=== PATIENT | male | born 1935 | race Caucasian/White ===

== ENCOUNTER 2018-08-02 13:38 | Emergency (ER) | payer MEDICARE ==
[2018-08-02] MEDS ORDERED: Sodium Chloride 0.9% 1000 ML 1,000 ML IV STA (14:07)
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
[2018-08-02 14:25] LABS: BASOPHIL % 0.1 % (0.0-0.4); Basophil (Absolute #) 0.02 (0-0.4); Eosinophil % 0.5 % (0.00-5.0); Eosinophil (Absolute #) 0.07 (0-0.5); Granulocyte Absolute (ANC) 9.54 (1.4-6.9); Granulocytes % 70.2 % (36.0-66.0); Hematocrit 41.1 % (42-50); Hemoglobin 13.2 gm/dl (12.5-18.0); Lymphocyte (Absolute #) 2.62 (1.0-4.6); Lymphocytes % 19.3 % (24.0-44.0); Mean Cell Volume 96.7 fl (78-100); Mean Corpuscular Hemoglobin 31.1 pg (26-32); Mean Corpuscular Hgb Concent. 32.1 g/dl (32-36); Mean Platelet Volume 11.1 fl (6-9.5); Monocyte (Absolute #) 1.35 (0.0-1.3); Monocytes % 9.9 % (0.0-12.0); Platelet Count 232 K/mm3 (150-450); Red Blood Count 4.25 M/mm3 (4.1-5.6); Red Cell Distribution Width 14.1 % (11.5-14.0); White Blood Count 13.6 K/mm3 (4.0-10.5)
[2018-08-02 14:33] LABS: INR 2.87 (0.8-3.0); PROTIME 33.7 SECONDS (8.83-12.87)
[2018-08-02] MEDS ORDERED: Sodium Chloride 0.9% 1000 ML 1,000 ML ONE (14:34)
[2018-08-02 14:38] LABS: ALBUMIN 3.7 g/dL (3.5-5.0); BILIRUBIN,TOTAL 0.7 mg/dL (0.2-1.3); Calcium 9.4 mg/dL (8.4-10.2); Creatinine 1 1.37 mg/dL (0.66-1.25); Potassium 3.7 mmol/L (3.5-5.1); Total Protein 6.5 g/dL (6.3-8.2)
[2018-08-02 15:07] VITALS: BP 173/102; PULSE 99
[2018-08-02 15:13] VITALS: O2SAT 95
[2018-08-02 15:17] LABS: Appearance CLEAR (CLEAR); Bilirubin NEGATIVE (NEGATIVE); Blood NEGATIVE Ery/ul (0-5); Glucose 150 mg/dL (NEGATIVE); Ketones TRACE (NEGATIVE); Leukocyte Esterase NEGATIVE (NEGATIVE); Mucus SLIGHT /HPF (NEGATIVE); Nitrite NEGATIVE (NEGATIVE); Protein,Urine Dip NEGATIVE (Negative); Urobilinogen NEGATIVE mg/dL (0-1); WBC 0-2 /HPF (0-5)
== END 2018-08-02 15:47 | disposition short-term general hospital (02) ==
LOC: ED 13:38
DX: S29.9XXA Unspecified injury of thorax, initial encounter (principal)
CPT/HCPCS: 36000; 36415; 71045; 80053; 81001; 82550; 84484; 85025; 85379; 85610; 93005; 93041; 96360; 99285

== ENCOUNTER 2018-09-29 12:58 | Emergency (ER) | payer MEDICARE ==
[2018-09-29] MEDS ORDERED: EPINEPHRINE ABBOJECT 1 MG IV ONE (12:59)
[2018-09-29] MEDS ORDERED: Sodium Chloride 0.9% 1000 ML 1,000 ML IV ONE (12:59)
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
--- NOTE | 2018-09-29 21:22 | XRAY ---
Indication: Endotracheal tube placement following cardiac arrest. Limited portable chest obtained on backboard demonstrates endotracheal tube tip 1.5 cm above the skip. Left lung base not included in the [id number] and there are multiple overlying monitoring leads. Visualized lungs demonstrates hazy interstitial lobular opacities without consolidation/large effusion. Heart is not enlarged.
== END 2018-09-29 15:59 | disposition expired ==
LOC: ED 12:58
DX: W67.XXXA Accidental drowning and submersion while in swimming-pool, initial encounter (principal); Y93.89 Activity, other specified; Y92.095 Swimming-pool of other non-institutional residence as the place of occurrence of the external cause; I10 Essential (primary) hypertension; E11.9 Type 2 diabetes mellitus without complications; M19.90 Unspecified osteoarthritis, unspecified site; R58 Hemorrhage, not elsewhere classified; R09.02 Hypoxemia; Z79.899 Other long term (current) drug therapy
CPT/HCPCS: 51702; 71045; 94799; 96360; 96374; 96376; 99284; J0171